=== PATIENT | female | born 1975 | race Caucasian/White ===

== ENCOUNTER 2021-05-03 09:57 | Emergency (ER) | payer OTHER ==
[2021-05-03 10:19] LABS: BASOPHIL 1.3 % (0-2); EOSINOPHIL 1.7 % (0-5); HGB 14.2 g/dl (12.5-16.0); LYMPHOCYTE 36.8 % (15-48); MCH 30.3 pg (25.0-31.0); MCV 91.7 fL (78.0-100.0); MONOCYTE 6.6 % (0-12); MPV 8.9 fL (6.0-9.5); NEUTROPHIL 51.4 % (41-80); NRBC 0; PLT 365 K/uL (150-400); RBC 4.69 M/uL (4.20-5.40); RDW 12.7 % (11.5-14.0); WBC 10.5 K/uL (4.0-10.5)
[2021-05-03 10:30] LABS: ALBUMIN 4.3 g/dL (3.4-5.0); BILIRUBIN - TOTAL 0.3 mg/dL (0.2-1.0); BUN/CREAT RATIO (CALC) 10.1 RATIO; CREATININE 0.69 mg/dL (0.51-0.95); GLOBULIN (CALCULATION) 3.8 g/dL; POTASSIUM 3.2 mmol/L (3.5-5.1); TOTAL PROTEIN 8.1 g/dL (6.4-8.2)
[2021-05-03 10:38] LABS: BILIRUBIN NEGATIVE (NEGATIVE); BLOOD 1+ Ery/uL (NEGATIVE); CLARITY CLEAR (CLEAR); COLOR YELLOW (YELLOW); GLUCOSE (U) NORMAL (NORMAL); LACTIC ACID 4.3 mmol/L (0.4-1.9); LEUKOCYTES NEGATIVE Leu/uL (NEGATIVE); NITRITE NEGATIVE (NEGATIVE); PROTEIN NEGATIVE (NEGATIVE); SPECIFIC GRAVITY <=1.005 (1.001-1.030); UROBILINOGEN 0.2 mg/dL (0.2-1.0)
[2021-05-03 10:46] LABS: AMPHETAMINES NEGATIVE (NEGATIVE); BARBITURATES NEGATIVE (NEGATIVE); ECSTASY (MDMA) NEGATIVE (NEGATIVE); MARIJUANA (THC) NEGATIVE (NEGATIVE); METHADONE NEGATIVE (NEGATIVE); OPIATES NEGATIVE (NEGATIVE); OXYCODONE NEGATIVE (NEGATIVE)
[2021-05-03 11:31] LABS: URINARY RBC RARE; URINARY WBC RARE
[2021-05-03 11:44] LABS: INR 1.04 (0.9-1.2); PTT 27.2 SECONDS (24.4-34.7)
[2021-05-03 11:45] LABS: D-DIMER 0.36 ug/mLFEU (0.00-0.41)
== END 2021-05-03 22:15 | disposition other institution (70) ==
LOC: FER 09:57
PROVIDERS: Emergency Medicine
DX: G40.901 Epilepsy, unspecified, not intractable, with status epilepticus (principal); Z79.899 Other long term (current) drug therapy; Z88.8 Allergy status to other drugs, medicaments and biological substances; Z20.822 Contact with and (suspected) exposure to COVID-19
CPT/HCPCS: 31500; 36415; 36600; 70450; 71045; 80053; 80299; 80305; 81001; 82803; 83605; 84484; 85025; 85379; 85610; 85730; 93005; 96365; 96375; 96376; J0330; J1953; J2060; J2250; J2704; J7030; J7050; Q2009; U0002